=== PATIENT | male | born 1995 | race Caucasian/White ===

== ENCOUNTER 2019-01-11 10:21 | Outpatient (CLI) | payer OTHER | END 2019-01-11 10:22 | disposition critical access hospital (66) | LOC: EMS 10:21 | PROVIDERS: ATTEND Surgery | DX: R10.11 Right upper quadrant pain (principal); R11.2 Nausea with vomiting, unspecified | CPT/HCPCS: A0425; A0427 ==

== ENCOUNTER 2019-01-11 10:50 | Day surgery (SDC) | payer OTHER ==
[2019-01-11 11:49] LABS: BASOPHILS % (AUTO) 0.2 %; HGB - HEMOGLOBIN 14.1 g/dL (14.0-18.0); LYMPHOCYTES # (AUTO) 0.7 10^3/uL (1.5-3.5); MEAN CORPUSCULAR HEMOGLOBIN 29.3 pg (27.0-31.0); MEAN CORPUSCULAR HGB CONC 32.3 g/dL (32.0-36.0); MEAN CORPUSCULAR VOLUME 90.9 fL (80.0-94.0); MEAN PLATELET VOLUME 8.8 fL (7.4-11.4); MONOCYTES # (AUTO) 1.2 10^3/uL (0.0-1.0); MONOCYTES % (AUTO) 6.7 %; NEUTROPHILS # (AUTO) 16.1 10^3/uL (1.5-6.6); NEUTROPHILS % (AUTO) 88.4 %; PLT - PLATELET COUNT 313 10^3/uL (130-450); RED BLOOD COUNT 4.81 10^6/uL (4.70-6.10); WHITE BLOOD COUNT 18.2 x10^3/uL (4.8-10.8)
--- NOTE | 2019-01-11 12:00 | ED Physician Documentation ---
PD HPI ABD PAIN - Stated complaint Stated Complaint: ABD PAIN/ N/V - Chief complaint Chief Complaint: Abd Pain - History obtained from History obtained from: Patient - History of Present Illness Timing - onset: How many days ago (4) Timing - duration: Days (4) Timing - details: Gradual onset, Still present Quality: Cramping, Aching, Pain Location: RUQ, Epigastric Radiation: Chest (with deep breathing) Improved by: No: Vomiting Worsened by: Eating, Breathing, Palpation Associated symptoms: Fever (subjective the past day), Nausea, Vomiting, Loss of appetite. No: Hematemesis, Diarrhea, Constipation, Near syncope / syncope Similar symptoms before: Has not had sx before Recently seen: Clinic ([facility] today, and referred to ER.) Review of Systems Constitutional: reports: Fever, Chills, Myalgias Nose: denies: Rhinorrhea / runny nose, Congestion Throat: denies: Sore throat Cardiac: denies: Palpitations Respiratory: denies: Dyspnea, Cough GI: reports: Abdominal Pain, Nausea, Vomiting. denies: Constipation, Diarrhea : denies: Dysuria, Frequency, Discharge Skin: denies: Rash PD PAST MEDICAL HISTORY - Past Medical History Past Medical History: No Cardiovascular: None Respiratory: None GI: None - Past Surgical History Past Surgical History: No - Present Medications Home Medications: Ambulatory Orders Medication Instructions Recorded Confirmed No Known Home Medications 01/11/19 01/11/19 - Allergies Allergies/Adverse Reactions: Allergies Allergy/AdvReac Type Severity Reaction Status Date / Time No Known Drug Allergies Allergy Verified 01/11/19 10:56 - Social History Does the pt smoke?: No Smoking Status: Never smoker PD ED PE NORMAL - Vitals Vital signs reviewed: Yes - General General: Alert and oriented X 3, Well developed/nourished, Other (Appears in pain and is tender in the right upper quadrant.) - HEENT HEENT: Pharynx benign. No: Moist mucous membranes - Neck Neck: Supple, no meningeal sign, No adenopathy - Cardiac Cardiac: RRR, No murmur - Respiratory Respiratory: Clear bilaterally - Abdomen Abdomen: Soft, Non distended, No organomegaly, Other (Bowel sounds are diminished. He is markedly tender with percussion and guarding in the right upper quadrant to the mid abdomen. Lower abdomen itself is not tender. There is no CVA tenderness. There is some referred tenderness to the upper right from the periumbilical area.) - Male Male : Deferred - Rectal Rectal: Deferred - Back Back: No CVA TTP - Derm Derm: Normal color, Warm and dry - Neuro Neuro: Alert and oriented X 3, No motor deficit, Normal speech Eye Opening: Spontaneous Motor: Obeys Commands Verbal: Oriented GCS Score: 15 Results - Vitals Vitals: Vital Signs - 24 hr 01/11/19 01/11/19 01/11/19 18:00 18:05 18:10 Temperature 37.7 C H 37.7 C H 37.2 C Heart Rate 71 76 71 Respiratory 16 14 14 Rate Blood Pressure 95/53 L 104/53 L 109/56 L O2 Saturation 99 99 99 01/11/19 01/11/19 01/11/19 18:15 18:20 18:25 Temperature 37.1 C 37.1 C 37.1 C Heart Rate 71 73 77 Respiratory 14 14 14 Rate Blood Pressure 98/52 L 108/60 110/55 L O2 Saturation 99 99 99 01/11/19 01/11/19 01/11/19 18:31 18:35 18:45 Temperature 37.1 C 37.1 C 37 C Heart Rate 75 71 72 Respiratory 14 14 14 Rate Blood Pressure 110/60 110/62 113/56 L O2 Saturation 99 100 100 01/11/19 01/11/19 01/11/19 19:27 19:42 19:57 Temperature 37.0 C 37.6 C H 37.4 C Heart Rate 84 80 100 Respiratory 16 16 18 Rate Blood Pressure 108/65 113/52 L 118/69 O2 Saturation 99 98 98 01/11/19 01/11/19 01/11/19 20:12 20:42 21:12 Temperature 37.5 C 37.6 C H 37.6 C H Heart Rate 100 86 97 Respiratory 16 18 18 Rate Blood Pressure 109/66 112/59 L 96/77 O2 Saturation 97 98 99 01/11/19 01/11/19 01/12/19 22:12 23:12 00:09 Temperature 37.4 C 36.9 C 37.0 C Heart Rate 78 91 92 Respiratory 16 16 16 Rate Blood Pressure 109/43 L 99/49 L 110/46 L O2 Saturation 98 99 99 01/12/19 01/12/19 01/12/19 01:10 04:24 08:04 Temperature 36.9 C 37.1 C 36.8 C Heart Rate 96 67 80 Respiratory 16 16 16 Rate Blood Pressure 102/46 L 103/43 L 121/65 O2 Saturation 99 99 96 01/12/19 12:54 Temperature 37.1 C Heart Rate 93 Respiratory 16 Rate Blood Pressure 129/62 O2 Saturation 97 Oxygen O2 Source Room air - Labs Labs: Microbiology 01/11/19 16:30 Anaerobic Culture - Preliminary Gallbladder 01/11/19 16:30 Body Fluid Culture - Preliminary Gallbladder Fluid Laboratory Tests 01/11/19 01/11/19 01/11/19 11:30 11:30 12:30 WBC 18.2 H RBC 4.81 Hgb 14.1 Hct 43.7 MCV 90.9 MCH 29.3 MCHC 32.3 RDW 12.0 Plt Count 313 MPV 8.8 Neut # (Auto) 16.1 H Lymph # (Auto) 0.7 L [facility] # (Auto) 1.2 H Eos # (Auto) 0.0 Baso # (Auto) 0.0 Absolute Nucleated RBC 0.00 Nucleated RBC % 0.0 Sodium 140 Potassium 3.9 Chloride 105 Carbon Dioxide 23 Anion Gap 12.0 BUN 15 Creatinine 0.9 Estimated GFR (MDRD) 104 Glucose 138 H Calcium 9.0 Total Bilirubin 1.0 AST 20 ALT 20 Alkaline Phosphatase 54 Total Protein 7.5 Albumin 4.4 Globulin 3.1 Albumin/Globulin Ratio 1.4 Lipase 34 Urine Color YELLOW Urine Clarity CLEAR Urine pH 6.5 Ur Specific Farber 1.025 Urine Protein 100 H Urine Glucose (UA) 250 H Urine Ketones 15 H Urine Occult Blood NEGATIVE Urine Nitrite NEGATIVE Urine Bilirubin NEGATIVE Urine Urobilinogen 2 H Ur Leukocyte Esterase NEGATIVE Urine RBC 0-5 Urine WBC 4-5 Ur Epithelial Cells None Seen Ur Squamous Epith Cells NONE SEEN Urine Bacteria None Seen Urine Mucus Few Strands Ur Microscopic Review INDICATED Urine Culture Comments NOT INDICATED 01/12/19 01/12/19 06:50 06:50 WBC 11.7 H RBC 4.41 L Hgb 13.4 L Hct 40.5 L MCV 91.8 MCH 30.4 MCHC 33.1 RDW 12.0 Plt Count 309 MPV 9.1 Neut # (Auto) 10.0 H Lymph # (Auto) 0.8 L [facility] # (Auto) 0.8 Eos # (Auto) 0.1 Baso # (Auto) 0.0 Absolute Nucleated RBC 0.00 Nucleated RBC % 0.0 Sodium 138 Potassium 3.9 Chloride 105 Carbon Dioxide 22 Anion Gap 11.0 BUN 16 Creatinine 1.0 Estimated GFR (MDRD) 92 Glucose 132 H Calcium 8.6 Total Bilirubin 1.6 H AST 36 ALT 40 Alkaline Phosphatase 47 Total Protein 6.7 Albumin 3.7 Globulin 3.0 Albumin/Globulin Ratio 1.2 Lipase Urine Color Urine Clarity Urine pH Ur Specific Farber Urine Protein Urine Glucose (UA) Urine Ketones Urine Occult Blood Urine Nitrite Urine Bilirubin Urine Urobilinogen Ur Leukocyte Esterase Urine RBC Urine WBC Ur Epithelial Cells Ur Squamous Epith Cells Urine Bacteria Urine Mucus Ur Microscopic Review Urine Culture Comments - Rads (name of study) abd CT Radiology: Prelim report reviewed, Discussed with rads (Acute emphysematous cholecystitis.), See rad report PD MEDICAL DECISION MAKING - ED course Complexity details: reviewed results (Appears to be emphysematous cholecystitis. No obvious ductal process. His liver enzymes are normal speaking against a ductal process. On-call surgery will be called. He is given IV antibiotics. Surgery is here and will evaluate the patient for surgical treatment.), re-evaluated patient, considered differential (Consider gallbladder versus pancreas. Unlikely to be appendicitis given the location. Also consider transverse colitis. Will get labs and CT scan.), d/w patient, d/w big machine consultant (Will consult Dr. Vogel is on-call for surgery) Departure - Departure Disposition: ED Transfer to [facility] Clinical Impression: Acute cholecystitis Condition: Stable Record reviewed to determine appropriate education?: Yes Discharge Date/Time: 01/11/19 15:50
[2019-01-11 12:05] LABS: ALBUMIN 4.4 g/dL (3.2-5.5); ALBUMIN/GLOBULIN RATIO 1.4 (1.0-2.2); CREATININE 0.9 mg/dL (0.6-1.2); TOTAL PROTEIN 7.5 g/dL (6.7-8.2)
[2019-01-11] MEDS ORDERED: ONDANSETRON 4 MG/2 ML VIAL IVP STA (12:24)
[2019-01-11] MEDS ORDERED: HYDROmorphone 1 MG/ML CARPUJECT IVP STA ×2 (12:24→15:01)
[2019-01-11] MEDS ORDERED: SODIUM CHLORIDE 0.9% 1,000 ML IV ONE (12:24)
[2019-01-11] MEDS ORDERED: IOVERSOL 320 100 ML VIAL IVP ONE ×2 (12:52→13:01)
[2019-01-11 12:56] LABS: GLUCOSE, URINE (UA) 250 mg/dL (NEGATIVE); KETONES,URINE (UA) 15 mg/dL (NEGATIVE); LEUKOCYTE ESTERASE, URINE NEGATIVE (NEGATIVE); NITRITE,URINE NEGATIVE (NEGATIVE); OCCULT BLOOD,URINE NEGATIVE (NEGATIVE); PH,URINE 6.5 PH (5.0-7.5); PROTEIN,URINE 100 mg/dL (NEGATIVE); UROBILINOGEN,URINE 2 E.U./dL (NORMAL)
[2019-01-11 13:09] LABS: BILIRUBIN,URINE NEGATIVE (NEGATIVE); CLARITY,URINE CLEAR (CLEAR); ICTOTEST,URINE NEGATIVE
[2019-01-11] MEDS ORDERED: AMPICILLIN/SULBACTAM 3 GM in SODIUM CHLORIDE 0.9% MINIBAG 100 ML IV STA (13:16)
--- NOTE | 2019-01-11 13:24 | CT Report ---
Reason: right abd pain, upper mostly, for 4 days Procedure Date: 01/11/2019 Accession Number: [id number] / [id number] Procedure: CT - Abdomen/Pelvis W CPT Code: FULL RESULT: EXAM: CT ABDOMEN AND PELVIS EXAM DATE: 01/11/2019 01:00 PM. CLINICAL HISTORY: Right abdominal pain, upper mostly, for 4 days. COMPARISONS: None. TECHNIQUE: Routine helical CT imaging was performed through the abdomen and pelvis. IV contrast: Optiray 320 90 mL. Enteric contrast: No. Reconstructions: Coronal and sagittal. In accordance with CT protocol optimization, one or more of the following dose reduction techniques were utilized for this exam: automated exposure control, adjustment of mA and/or KV based on patient size, or use of iterative reconstructive technique. FINDINGS: Lung Bases: Unremarkable. Liver: Periportal edema. Gallbladder/Bile Ducts: Gallbladder is enlarged with pericholecystic subtle fat stranding and wall thickening with discontinuous enhancement of the internal mucosal lining and nondependent gas within the gallbladder. Distribution and appearance of the gas does not favor a vacuum phenomenon within radiolucent calculi but rather emphysematous cholecystitis. Spleen: Normal. Pancreas: Normal. Adrenal Glands: Normal. Kidneys: Normal. No masses or hydronephrosis. Peritoneal Cavity/Bowel: There is free fluid within the pelvis. There is no bowel obstruction. There is no free air. Fat stranding involving the hepatic flexure of the colon, the retrocecal appendix which courses cranially all the way up to the gallbladder fossa and the second and third portions of the duodenum are all felt to be bystander effect. There is regional lymphadenopathy, expected finding in this setting. Pelvic Organs: The bladder and visualized pelvic organs are within normal limits. Vasculature: No aneurysms or other significant abnormality. Bones: No significant abnormality. Other: None. IMPRESSION: Emphysematous cholecystitis. CRITICAL RESULT: The findings were discussed with Dr. Boyer on 01/11/2019 at 1:15 PM. RADIA
[2019-01-11 13:30] LABS: BACTERIA,URINE None Seen /HPF (None Seen); EPITHELIAL CELLS,UR None Seen /HPF (<= Few); MUCUS,URINE Few Strands; RBC,URINE 0-5 /HPF (0-5)
[2019-01-11 14:05] LABS: SQUAMOUS EPITHELIAL CELL,UR NONE SEEN (<= Few)
--- NOTE | 2019-01-11 14:28 | CONSULTATION NOTE ---
Referring Provider Name of Referring Provider:: Dr. Murphy Boyer Consult Date: 01/11/19 Chief Complaint - Chief Complaint Chief Complaint: Severe right upper quadrant pain History of Present Illness - Admitted From Admitted From:: Not admittedoutpatient - History Obtained From Records Reviewed: Yes History obtained from: Patient, the chart, Dr. 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 The patient states that on Monday night he had the abrupt onset of right upper quadrant pain that was described as severe. Prior to that abrupt onset he had eaten a burger. The pain was accompanied by nausea and vomiting. He had never had this pain previously and the pain is described as a 10 out of 10 unless he is taking pain medications at which time it is described as a 6 out of 10. History - Past Medical History Cardiovascular: reports: None Respiratory: reports: None MRSA Hx?: No Meds/Allgy - Home Medications Home Medications: Ambulatory Orders Medication Instructions Recorded Confirmed No Known Home Medications 01/11/19 01/11/19 - Allergies Allergies/Adverse Reactions: Allergies Allergy/AdvReac Type Severity Reaction Status Date / Time No Known Drug Allergies Allergy Verified 01/11/19 10:56 Review of Systems - Constitutional Constitutional: denies: Fatigue - Eyes Eyes: denies: Pain - Ears, Nose & Throat Ears, Nose & Throat: denies: Ear pain - Cardiovascular Cariovascular: denies: Irregular heart rate - Respiratory Respiratory: denies: Cough - Gastrointestinal Gastrointestinal: reports: Abdominal pain - Genitourinary Genitourinary: denies: Dysuria - Musculoskeletal Musculoskeletal: denies: Muscle pain, Back pain, Muscle aches - Neurological Neurological: denies: General weakness, Focal weakness Exam - Vital Signs Reviewed Vital Signs: Yes Vital Signs: Vital Signs x48h Temp Pulse Resp BP Pulse Ox 01/11/19 12:35 56 L 19 150/73 H 98 01/11/19 10:53 36.9 C 57 L 16 144/78 H 96 - Physical Exam General Appearance: positive: Mild distress (Splints whenever he breathes deeply or laughs.), Other (Slightly pasty complexion, sweaty.) Eyes Bilateral: positive: No lid inflammation, Conjunctivae nml, No scleral icterus ENT: positive: Dry mucous membranes Neck: positive: Trachea midline Respiratory: positive: Chest non-tender, No respiratory distress, Breath sounds nml Cardiovascular: positive: Regular rate & rhythm Abdomen: positive: Tenderness (Point tender in the right upper quadrant. Peritoneal in nature.) Skin: positive: Color nml Extremities: positive: Non-tender Neurologic/Psychiatric: positive: Oriented x3, Motor nml, Sensation nml, Mood/affect nml Conclusion/Plan - Diagnosis Diagnosis: Acute emphysematous cholecystitis - Plan Plan: Laparoscopic cholecystectomy, possible open cholecystectomy, possible intraoperative cholangiogram, possible common bile duct exploration. The indications, procedure, alternatives including no surgery, possible risks including infection (deep or superficial), bleeding requiring transfusion (with all of its risks), common bile duct injury and were fully explained to the patient and all questions answered. I explained what the gallbladder is and how it works. I also explained the pathophysiology. I explained that following the surgery I did not want him lifting anything over 15 pounds for 6 weeks to allow for optimal healing and to decrease the likelihood that a hernia would occur. All questions were fully answered. Verbal and written consent was obtained. The patient, in preparation for surgery will be nothing by mouth, receive a soap and water shower, and receive 2 g of Ancef with induction. I asked him to contact me with any surgical questions and his concerns and he stated that he would. I asked him to let me know if there is any way we can make his say at [facility] more comfortable and he stated that he would let me know. 45 minutes of [id number] time spent with the patient, the majority of which was spent in discussion, coordination of care, and completion of the requisite paperwork Springr disclaimer: This document was created in part using voice recognition technology. Because of the inherent limitations of the system ([employer]'s Springr Dictate user manual states that the licensee understands that speech recognition is a statistical process and that recognition errors are inherent in the process), occasional same sounding word substitutions and grammatical errors do occur and persist despite proofreading. Please read this document for context. - Lab Results Lab results reviewed: Yes Fish Bones: 01/11/19 11:30 01/11/19 11:30 - Diagnostic Imaging Results Diagnostic Imaging Results: positive: Final report reviewed Diagnostic Imaging Results Comments: Consistent with acute emphysematous cholecystitis.
--- NOTE | 2019-01-11 14:37 | ANESTHESIA ---
Pre-Anesthesia VS, & Labs - Diagnosis Diagnosis Acute emphysematous cholecystitis - Procedure Laparoscopic cholecystectomy Vital Signs: Temp Pulse Resp BP Pulse Ox 36.9 C 56 L 19 150/73 H 98 01/11/19 10:53 01/11/19 12:35 01/11/19 12:35 01/11/19 12:35 01/11/19 12:35 Height 5 ft 9 in Weight (kg) 83.915 kg Body Mass Index 27.3 - NPO Last Food Intake: 06/13 [employer] @6Scan - Lab Results Current Lab Results: Laboratory Tests 01/11/19 11:30: Sodium 140, Potassium 3.9, Chloride 105, Carbon Dioxide 23, Anion Gap 12.0, BUN 15, Creatinine 0.9, Estimated GFR (MDRD) 104, Glucose 138 H, Calcium 9.0, Total Bilirubin 1.0, AST 20, ALT 20, Alkaline Phosphatase 54, Total Protein 7.5, Albumin 4.4, Globulin 3.1, Albumin/Globulin Ratio 1.4, Lipase 34 01/11/19 11:30: WBC 18.2 H, RBC 4.81, Hgb 14.1, Hct 43.7, MCV 90.9, MCH 29.3, MCHC 32.3, RDW 12.0, Plt Count 313, MPV 8.8, Neut # (Auto) 16.1 H, Lymph # (Auto) 0.7 L, Cache # (Auto) 1.2 H, Eos # (Auto) 0.0, Baso # (Auto) 0.0, Absolute Nucleated RBC 0.00, Nucleated RBC % 0.0 Fish Bones: 01/11/19 11:30 01/11/19 11:30 Home Medications and Allergies Home Medications: Ambulatory Orders No Known Home Medications 01/11/19 No Known Home Medications 01/11/19 Allergies/Adverse Reactions: Allergies Allergy/AdvReac Type Severity Reaction Status Date / Time No Known Drug Allergies Allergy Verified 01/11/19 10:56 Anes History & Medical History - Anesthetic History Anesthesia Complications: reports: No previous complications Family history of Anesthesia Complications: Denies Family history of Malignant Hyperthermia: Denies - Medical History Cardiovascular: reports: None Pulmonary: reports: None Smoking Status: Never smoker Exam General: Alert, Oriented x3, Cooperative Dental: WNL Mouth Opening: Greater than 4 Fingerbreadths Neck Mobility: Normal Mallampati classification: I Thyromental Distance: 4-6 cm Respiratory: Lungs clear, Normal breath sounds, No respiratory distress Cardiovascular: Regular rate Neurological: Normal speech Mental/Cognitive Status: Alert/Oriented X3, Normal for patient Cognitive Status: Within normal limits Plan Anesthesia Type: General Consent for Procedure(s) Verified and Reviewed: Yes Code Status: Attempt Resuscitation ASA classification: 1-Healthy patient Is this case an emergency?: Yes
--- NOTE | 2019-01-11 15:25 | OPERATIVE REPORT ---
Operative Report - General Procedure Date: 01/11/19 Planned Procedure: Incarcerated left inguinal herniorrhaphy Pre-Op Diagnosis: Incarcerated left inguinal hernia Procedure Performed: Incarcerated left indirect inguinal herniorrhaphy Post Op Diagnosis: Incarcerated left indirect inguinal hernia - Procedure Note Primary Surgeon: Murphy Vogel MD Anesthesia Provider: Sergio Padilla CRNA Anesthesia Technique: General LMA, Local (30 mL of half percent Marcaine) IV Fluids (mL): 600 Estimated Blood Loss (mL): 10 Drain/Tube Type: Other (None.) Complications: None. - Other Other Information/Narrative: OPERATIVE DESCRIPTION/REPORT: After verbal and written informed consent was obtained detailing the risks of infection, bleeding requiring transfusion with its risks, nerve injury, and d eath, and after I met with the patient confirming the surgery and the site of the surgery and after initialing the site of the surgery with a surgical marker, the patient was brought to the operative suite and placed supine on the operating table. Great care was taken to avoid pressure points to prevent pressure necrosis or nerve injury. Monitoring devices were applied along with TEDs and pneumatic compressive stockings (to prevent DVT). The patient received preoperative antibiotics for surgical prophylaxis. Sergio Padilla CRNA sedated and anesthetized the patient for the entire procedure. The patient was prepped and draped in the usual sterile manner. With the patient draped my initials were clearly visible. A "time in" then confirmed that the patient was identified with 3 identifiers (name, date and medical record number), the history and physical was in the chart, the signed consent confirming the procedure was in the chart, the patient was in the correct position, the aforementioned prophylactic measures were in place or given, we had the correct personnel and equipment to complete the procedure and that anesthesia, surgery and nursing were given an opportunity to express any concerns. With the agreement of everyone in the room, we proceeded with the operation. A standard inguinal incision was made and dissection was carried down to the widely dilated external oblique aponeurosis using a combination of Metzenbaum scissors and Bovie electrocautery. The external oblique aponeurosis was cleared of overlying adherent tissue, and the external ring was delineated. The external oblique was the incised with a scalpel and this incision was carried out to the external ring using Metzenbaum scissors. Having exposed the inguinal canal, the cord structures were from the canal using blunt dissection, and a Nicole drain was placed around the cord structures at the level of the pubic tubercle. During this maneuver the hernia spontaneously reduced obviously making the entire procedure easier. This Nicole drain was then used to retract the cord structures as needed. Adherent cremasteric muscle was dissected free from the cord using Bovie electrocautery. The cord was then explored using a combination of sharp and blunt dissection, and the sac was found anteromedially to the cord structures. There was significant edema around the cord structures. The sac was dissected free from the cord structures using a combination of blunt dissection and Bovie electrocautery. Once preperitoneal fat was encountered, the dissection stopped. Examination of the sac revealed that this was a sliding indirect inguinal hernia and I determined that opening the sac would have simply made the entire procedure more problematic. The sac was placed back into the abdominal cavity and an extra-large Bard Perfix plug (Ref# [id number], Lot# [id number], use date 2023-11-07) inserted into the internal ring. The plug was secured to the internal ring by interrupted 2-0 PDS sutures. The Bard Perfix enlay patch was then placed on the floor of the inguinal canal and secured in place using interrupted 0 PDS sutures to the conjoined tendon superiorly, pubic tubercle medially, and shelving edge inferiorly. By reinforcing the floor with the enlay patch, a new internal ring was thus formed. The Nicole drain was removed. The wound was then irrigated using sterile saline, and hemostasis was obtained using Bovie electrocautery. The incision in the external oblique was approximated using a 3-0 Vicryl in a running fashion, thus reforming the external ring. The fascia and skin was then injected with the 1/2% marcaine for termite exterminator pain control. The skin incision was approximated with 4-0 Monocryl in a subcuticular fashion. The skin was prepped with benzoin and steristrips were applied. At this point a time out was performed that confirmed that all the counts were correct, the procedure that was performed, the blood loss, the IV fluids administered, and the patients condition. A dressing was then applied. Gentle downward traction ensured that the testes were well seated in the scrotum. Having tolerated the procedure well, the patient was taken to short stay in good and stable condition. Lori disclaimer: This document was created in part using voice recognition technology. Because of the inherent limitations of the system ([employer]'s Dragon Dictate user manual states that the licensee understands that speech recognition is a statistical process and that recognition errors are inherent in the process), occasional same sounding word substitutions and grammatical errors do occur and persist despite proofreading. Please read this document for context.
[2019-01-11] MEDS ORDERED: LACTATED RINGERS 1,000 ML IV ONE ×2 (15:49→18:17)
[2019-01-11] MEDS: BUPIVACAINE 0.5% PF 10 ML VIAL ONE ×2 (16:52→17:45)
[2019-01-11] MEDS ORDERED: ONDANSETRON 4 MG/2 ML VIAL IVP PRN (18:03)
[2019-01-11] MEDS ORDERED: HYDROmorphone 0.5 MG/0.5 ML SYRINGE IVP PRN (18:03)
[2019-01-11] MEDS ORDERED: HYDROcod/ACETAM 5/325 MG TABLET PO PRN (18:03)
[2019-01-11] MEDS ORDERED: ACETAMINOPHEN 1,000 MG/100 ML 100 ML IV ONE (18:19)
--- NOTE | 2019-01-11 18:20 | OPERATIVE REPORT ---
Operative Report - General Planned Procedure: Laparoscopic cholecystectomy Pre-Op Diagnosis: Emphysematous cholecystitis Procedure Performed: Laparoscopic cholecystectomy Post Op Diagnosis: Gangrenous cholecystitis - Procedure Note Primary Surgeon: Murphy Vogel MD Anesthesia Provider: Manny Martin CRNA Anesthesia Technique: General ET tube, Local (30 mL of half percent Marcaine) IV Fluids (mL): 800 Estimated Blood Loss (mL): 200 Drain/Tube Type: Other (None.) Complications: None. - Other Other Information/Narrative: OPERATIVE DESCRIPTION/REPORT: After verbal and written informed consent was obtained detailing the risks of infection, bleeding requiring transfusion with its risks, nerve injury, and , as well as the possibility of a colostomy, and after I met with the patient confirming the surgery, the patient was brought to the operative suite and placed supine on the operating table. Great care was taken to avoid pressure points to prevent pressure necrosis or nerve injury. Monitoring de vices were applied along with TEDs and pneumatic compressive stockings (to prevent DVT). The patient received preoperative antibiotics for surgical prophylaxis. Manny Martin CRNA sedated and anesthetized the patient for the entire procedure. The patient was prepped and draped in the usual sterile manner. A "time in" then confirmed that the patient was identified with 3 identifiers (name, date and medical record number), the history and physical was in the chart, the signed consent confirming the procedure was in the chart, the patient was in the correct position, the aforementioned prophylactic measures were in place or given, we had the correct personnel and equipment to complete the procedure and that anesthesia, surgery and nursing were given an opportunity to express any concerns. With the agreement of everyone in the room, we proceeded with the operation. The initial incision was at the umbilicus and dissection to the linea alba was completed using blunt dissection. The linea alba was grasped with a Ashok and incised. In a similar manner the peritoneum was grasped and incised using Metzenbaum scissors. In this location, a 12 mm blunt tipped, balloon tipped po rt was placed and the balloon was inflated to keep the port in position. The abdominal cavity was insufflated with carbon dioxide to steady-state pressure of 15 mmHg. Three additional 5 mm ports were placed in standard location for laparoscopic cholecystectomy (subxiphoid and 2 right subcostal) under direct vision of the 30 degree laparoscope and without incident. The patient was then placed in reverse Trendelenburg position and was rotated slightly to their left. Although it was suspected from the emphysematous nature of the gallbladder, it was obvious upon entering the abdomen that the gallbladder itself was gangrenous. The wall was markedly thick and could not be grasped with a standard ratcheting grasper. As such, I placed a laparoscopic needle into the gallbladder and removed approximately 180 mL of bile which was then sent off for aerobic and anaerobic culture. With the gallbladder decompressed grasping it was still difficult but it could be grasped. The gallbladder fundus was grasped with an atraumatic grasper. Multiple adhesions had to be taken down by blunt and sharp dissection along with electrocautery. Eventually, I identified the infundibulum, and this was then grasped and retracted inferior and laterally. Dissection was then begun in the angle of Calot. The cystic duct and (slightly medially and posteriorly) cystic artery were clearly identified. The critical view was obtained. Two clips proximally and one clip distally were used to control both the cystic duct and cystic artery. The clips were carefully placed to avoid occluding the juncture with the common bile duct. Both the cystic duct and then the cystic artery were then transected with laparoscopic dominique. The gallbladder was then removed from its fossa in a retrograde fashion using electrocautery. With the 30 degree 5 mm scope in the subxiphoid position, the gallbladder was placed in an EndoCatch bag to be extracted through the 12 mm port site. I irrigated the right upper quadrant with a liter of warm sterile saline, and the area was aspirated dry. I inspected the gallbladder fossa and there was no bleeding or bile leak. Clips on the cystic duct and cystic artery appeared to be secure. I briefly visually explored the abdomen. There was no other evidence of overt pathology. I injected the port sites at the peritoneal, fascial, and skin levels under direct vision with 0.5% Marcaine. All ports and the EndoCatch containing the gallbladder were removed. Following gallbladder removal, the remaining carbon dioxide was expelled from the abdomen. The fascia at the umbilicus was reapproximated using 2 [id number] 0 Vicryl sutures. The skin at each port site was approximated using a subcuticular 4-0 Monocryl. The surgical count of instruments, needles and sponges was reported as correct twice. Dermabond was applied. The patient was then awakened from anesthesia, extubated, and having tolerated the procedure well, was transported to the recovery room. No complications were encountered. A "time out" confirmed the operation performed, the fluids given, the estimated blood loss and anesthesia, surgery and nursing were given an opportunity to express any concerns. Dragon disclaimer: This document was created in part using voice recognition technology. Because of the inherent limitations of the system ([employer]'s Dragon Dictate user manual states that the licensee understands that speech recognition is a statistical process and that recognition errors are inherent in the process), occasional same sounding word substitutions and grammatical errors do occur and persist despite proofreading. Please read this document for context.
[2019-01-11] MEDS: PIPERACILLIN/TAZOBACTAM 3.375 GM in SODIUM CHLORIDE 0.9% MINIBAG 100 ML IV SCH (19:16)
[2019-01-11] MEDS ORDERED: SODIUM CHLORIDE 0.9% 500 ML ONE (19:18)
[2019-01-12] MEDS: PIPERACILLIN/TAZOBACTAM 3.375 GM in SODIUM CHLORIDE 0.9% MINIBAG 100 ML IV SCH ×2 (00:42→06:31)
[2019-01-12] MEDS ORDERED: SODIUM CHLORIDE FLUSH 0.9% 10 ML SYRINGE ONE ×2 (00:46→02:17)
[2019-01-12 07:22] LABS: BASOPHILS % (AUTO) 0.3 %; EOSINOPHILS # (AUTO) 0.1 10^3/uL (0.0-0.7); EOSINOPHILS % (AUTO) 0.7 %; HGB - HEMOGLOBIN 13.4 g/dL (14.0-18.0); LYMPHOCYTES # (AUTO) 0.8 10^3/uL (1.5-3.5); LYMPHOCYTES % (AUTO) 6.5 %; MEAN CORPUSCULAR HEMOGLOBIN 30.4 pg (27.0-31.0); MEAN CORPUSCULAR HGB CONC 33.1 g/dL (32.0-36.0); MEAN CORPUSCULAR VOLUME 91.8 fL (80.0-94.0); MEAN PLATELET VOLUME 9.1 fL (7.4-11.4); MONOCYTES # (AUTO) 0.8 10^3/uL (0.0-1.0); MONOCYTES % (AUTO) 6.6 %; NEUTROPHILS % (AUTO) 85.3 %; PLT - PLATELET COUNT 309 10^3/uL (130-450); RED BLOOD COUNT 4.41 10^6/uL (4.70-6.10); WHITE BLOOD COUNT 11.7 x10^3/uL (4.8-10.8)
[2019-01-12 07:30] LABS: ALBUMIN 3.7 g/dL (3.2-5.5); ALBUMIN/GLOBULIN RATIO 1.2 (1.0-2.2); BILIRUBIN,TOTAL 1.6 mg/dL (0.2-1.0); CALCIUM 8.6 mg/dL (8.5-10.3); TOTAL PROTEIN 6.7 g/dL (6.7-8.2)
[2019-01-12 12:56] VITALS: BP 129/62
== END 2019-01-12 13:30 | disposition home or self-care (01) ==
LOC: ED 10:50 → SDS 14:20 → ED 15:50 → MS2 18:59 → SDS 01-12 13:30
PROVIDERS: ATTEND Surgery
PROC: 0FT44ZZ Resection of Gallbladder, Percutaneous Endoscopic Approach (ICD-10-PCS; principal; 2019-01-11 15:00)
DX: K80.00 Calculus of gallbladder with acute cholecystitis without obstruction (principal); K82.A1 Gangrene of gallbladder in cholecystitis
CPT/HCPCS: 36415; 47562; 74177; 80053; 81001; 83690; 85025; 87070; 87205; 96374; 99283; 99285; A9270; J0131; J1170; J7120; Q9967; 81003; 87086

== ENCOUNTER 2019-09-14 22:09 | Emergency (ER) | payer OTHER ==
--- NOTE | 2019-09-14 22:12 | ED Physician Documentation ---
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 No: Fever, Diarrhea, Constipation Similar symptoms before: Has not had sx before Recently seen: Not recently seen Review of Systems Constitutional: denies: Fever, Chills, Sweats Cardiac: reports: Reviewed and negative Respiratory: reports: Reviewed and negative GI: reports: Abdominal Pain, Nausea, Vomiting. denies: Constipation, Diarrhea : denies: Dysuria, Frequency, Hematuria Musculoskeletal: denies: Back pain PD PAST MEDICAL HISTORY - Past Medical History Cardiovascular: None Respiratory: None GI: None - Past Surgical History Past Surgical History: No - Present Medications Home Medications: Ambulatory Orders Medication Instructions Recorded Confirmed Hydrocodone/Acetaminophen 1 - 2 each PO Q6HR PRN #14 tablet 09/15/19 [Hydrocodone-Acetamin 5-325 mg] - Allergies Allergies/Adverse Reactions: Allergies Allergy/AdvReac Type Severity Reaction Status Date / Time No Known Drug Allergies Allergy Verified 01/11/19 10:56 - Social History Does the pt smoke?: No Smoking Status: Never smoker PD ED PE NORMAL - Vitals Vital signs reviewed: Yes - General General: Alert and oriented X 3, Well developed/nourished, Other (obvious painful distress) - HEENT HEENT: Moist mucous membranes - Neck Neck: Supple, no meningeal sign - Cardiac Cardiac: No murmur - Respiratory Respiratory: No respiratory distress, Clear bilaterally - Back Back: No CVA TTP - Derm Derm: Normal color, Warm and dry, No rash PD ED PE EXPANDED - Cardiac Cardiac: Tachy, Regular Rhythm - Abdomen Abdomen: Tender to palpation, RUQ, Epigastric. No: Rebound, Guarding Results - Vitals Vitals: Vital Signs - 24 hr 09/14/19 09/14/19 09/14/19 22:16 23:23 23:52 Temperature 36.4 C L Heart Rate 108 H 98 99 Respiratory 20 16 16 Rate Blood Pressure 140/84 H 134/84 H 125/66 O2 Saturation 98 98 96 Oxygen O2 Source Room air - Labs Labs: Laboratory Tests 09/14/19 09/14/19 22:25 22:25 WBC 7.9 RBC 5.33 Hgb 16.5 Hct 48.4 MCV 90.8 MCH 31.0 MCHC 34.1 RDW 11.6 L Plt Count 372 MPV 8.6 Neut # (Auto) 5.3 Lymph # (Auto) 2.0 Tillman # (Auto) 0.5 Eos # (Auto) 0.2 Baso # (Auto) 0.0 Absolute Nucleated RBC 0.00 Nucleated RBC % 0.0 Sodium 136 Potassium 3.5 Chloride 102 Carbon Dioxide 23 Anion Gap 11.0 BUN 16 Creatinine 1.1 Estimated GFR (MDRD) 82 L Glucose 90 Calcium 9.5 Total Bilirubin 1.2 H AST 81 H ALT 52 Alkaline Phosphatase 73 Total Protein 8.9 H Albumin 5.5 Globulin 3.4 Albumin/Globulin Ratio 1.6 Lipase 47 - Rads (name of study) CT A/P Radiology: Prelim report reviewed, See rad report PD MEDICAL DECISION MAKING - ED course Complexity details: reviewed results, re-evaluated patient, considered differential, d/w patient ED course: testing (blood tests, UA, CT A/P with IV contrast) does not yield diagnostic result or emergently concerning findings. On reevaluation, after IV fluids and 1 mg IV dilaudid, patient is resting comfortably, awake and alert and reports good pain relief. Results of tests d/w patient. Encouraged to f/u with PMD and return if worse Departure - Departure Disposition: 01 Home, Self Care Clinical Impression: Abdominal pain Condition: Good Instructions: ED Abdominal Pain Unkn Cause Male Follow-Up: [facility] [Provider Group] Prescriptions: Hydrocodone/Acetaminophen [Hydrocodone-Acetamin 5-325 mg] 1 - 2 each PO Q6HR PRN #14 tablet PRN Reason: Pain Discharge Date/Time: 09/15/19 00:29
[2019-09-14] MEDS ORDERED: HYDROmorphone 1 MG/ML SYRINGE IVP STA (22:34)
[2019-09-14] MEDS ORDERED: SODIUM CHLORIDE 0.9% 1,000 ML IV STA (22:34)
[2019-09-14 22:41] LABS: BASOPHILS % (AUTO) 0.4 %; EOSINOPHILS # (AUTO) 0.2 10^3/uL (0.0-0.7); HGB - HEMOGLOBIN 16.5 g/dL (14.0-18.0); LYMPHOCYTES % (AUTO) 24.7 %; MEAN CORPUSCULAR HGB CONC 34.1 g/dL (32.0-36.0); MEAN CORPUSCULAR VOLUME 90.8 fL (80.0-94.0); MEAN PLATELET VOLUME 8.6 fL (7.4-11.4); MONOCYTES # (AUTO) 0.5 10^3/uL (0.0-1.0); MONOCYTES % (AUTO) 5.9 %; NEUTROPHILS # (AUTO) 5.3 10^3/uL (1.5-6.6); NEUTROPHILS % (AUTO) 66.7 %; PLT - PLATELET COUNT 372 10^3/uL (130-450); RED BLOOD COUNT 5.33 10^6/uL (4.70-6.10); RED CELL DISTRIBUTION WIDTH 11.6 % (12.0-15.0); WHITE BLOOD COUNT 7.9 x10^3/uL (4.8-10.8)
[2019-09-14 22:49] LABS: ALBUMIN 5.5 g/dL (3.2-5.5); ALBUMIN/GLOBULIN RATIO 1.6 (1.0-2.2); BILIRUBIN,TOTAL 1.2 mg/dL (0.2-1.0); CALCIUM 9.5 mg/dL (8.5-10.3); CREATININE 1.1 mg/dL (0.6-1.2); TOTAL PROTEIN 8.9 g/dL (6.7-8.2)
[2019-09-14] MEDS ORDERED: IOVERSOL 320 100 ML VIAL IVP ONE ×2 (22:49→23:29)
--- NOTE | 2019-09-14 23:40 | CT Report ---
Reason: abd. pain Procedure Date: 09/14/2019 Accession Number: [id number] / [id number] Procedure: CT - Abdomen/Pelvis W CPT Code: Final Report FULL RESULT: EXAM: CT ABDOMEN AND PELVIS EXAM DATE: 09/14/2019 11:27 PM. CLINICAL HISTORY: New onset of mid abdominal pain with nausea and vomiting. COMPARISONS: ABDOMEN/PELVIS W/ 01/11/2019 12:57 PM. TECHNIQUE: Routine helical CT imaging was performed through the abdomen and pelvis. IV contrast: 100 mL OPTIRAY 320. Enteric contrast: No. Reconstructions: Coronal and sagittal. In accordance with CT protocol optimization, one or more of the following dose reduction techniques were utilized for this exam: automated exposure control, adjustment of mA and/or KV based on patient size, or use of iterative reconstructive technique. FINDINGS: Atelectasis is seen in the left lung base. The visible heart is normal in size. No focal intrahepatic mass is seen. The gallbladder has been removed since the prior exam. The common bile duct is mildly dilated at 8 mm, likely related to postcholecystectomy changes. The spleen, pancreas, and adrenal glands are within normal limits. The kidneys enhance symmetrically. There is no renal mass or hydronephrosis. The intestines are normal in caliber and position. Diverticula are seen throughout the colon without evidence of diverticulitis. The appendix is normal. There is no evidence of bowel obstruction or inflammation. No free intraperitoneal air or ascites is seen. Subcentimeter mesenteric and periaortic lymph nodes are similar to the prior exam. The abdominal aorta is normal in course and caliber. The bladder is normal. The prostate gland is normal. There is no free pelvic fluid. No acute osseous abnormality is seen. There are no suspicious lytic or blastic lesions. Is maintained. IMPRESSION: 1. No acute intra-abdominal abnormalities to explain the patient's abdominal pain 2. Diverticulosis. RADIA
[2019-09-14 23:53] VITALS: BP 125/66
[2019-09-15] MEDS ORDERED: PANTOPRAZOLE 40 MG TABLET PO STA (00:06)
[2019-09-15] MEDS ORDERED: HYDROcod/ACET 5/325 Prepack 4 PO STA (00:07)
== END 2019-09-15 00:29 | disposition home or self-care (01) ==
LOC: ED 22:09
DX: R10.11 Right upper quadrant pain (principal); R10.13 Epigastric pain
CPT/HCPCS: 36415; 74177; 80053; 83690; 85025; 96361; 96374; 99284; A9270; J1170; Q9967

== ENCOUNTER 2020-05-09 10:21 | Emergency (ER) | payer OTHER ==
--- NOTE | 2020-05-09 11:10 | ED Physician Documentation ---
History of Present Illness - Stated complaint Stated Complaint: HEAD LAC - Chief complaint Chief Complaint: Laceration - History obtained from History obtained from: Patient - History of Present Illness Timing: Today Pain level max: 3 Pain level now: 1 - Additonal information Additional information: 24 year old male with forehead laceration. He is active [employer]. He was at work today when a handle flew back and struck him in the forehead. No loss of consciousness. No vomiting. No neck or back pain. No numbness or tingling. Tetanus up-to-date Review of Systems Constitutional: denies: Fever, Chills GI: denies: Vomiting, Diarrhea Skin: denies: Rash Musculoskeletal: denies: Neck pain, Back pain Neurologic: denies: Headache PD PAST MEDICAL HISTORY - Past Medical History Cardiovascular: None Respiratory: None GI: None - Past Surgical History Past Surgical History: Yes General: Cholecystectomy - Present Medications Home Medications: Ambulatory Orders Medication Instructions Recorded Confirmed Hydrocodone/Acetaminophen 1 - 2 each PO Q6HR PRN #14 tablet 09/15/19 [Hydrocodone-Acetamin 5-325 mg] - Allergies Allergies/Adverse Reactions: Allergies Allergy/AdvReac Type Severity Reaction Status Date / Time No Known Drug Allergies Allergy Verified 05/09/20 10:36 - Social History Does the pt smoke?: No Smoking Status: Never smoker Does the pt drink ETOH?: Yes ETOH Use: Wine, Beer, Liquor Does the pt have substance abuse?: No - Immunizations Immunizations are current?: Yes - POLST Patient has POLST: No PD ED PE NORMAL - Vitals Vital signs reviewed: Yes - General General: Alert and oriented X 3, No acute distress - HEENT HEENT: PERRL, Moist mucous membranes, Pharynx benign, Other (2 cm, linear, subcutaneous laceration to the forehead. No hematoma. No palpable skull fracture.) - Neck Neck: Supple, no meningeal sign, No bony TTP - Derm Derm: Warm and dry - Neuro Neuro: Alert and oriented X 3 - Psych Psych: Normal mood, Normal affect Results - Vitals Vitals: Vital Signs - 24 hr 05/09/20 05/09/20 05/09/20 10:28 10:40 11:19 Temperature 37 C 37.5 C Heart Rate 114 H 94 84 Respiratory 16 16 18 Rate Blood Pressure 167/115 H 152/53 H 146/82 H O2 Saturation 98 97 100 Oxygen O2 Source Room air Procedures - Laceration (location) forehead Length in cm: 2 Wound type: Linear, Superficial, Clean Neurovascular status: Sensory intact, Motor intact, Vascular intact Wound Preparation: Irrigated copiously NS, Wound explored, To the base Skin layer closure: Dermabond, Steri strips Other: Patient tolerated well, No complications, Neurovascular intact, Tetanus UTD Complexity: Simple PD MEDICAL DECISION MAKING - ED course Complexity details: considered differential, d/w patient ED course: Patient with a forehead laceration. Superficial. Discussed Steri-Strips and Dermabond versus stitches. Patient elects Dermabond. The wound is very well approximated with Steri-Strips and Dermabond. We will have him follow-up closely with his doctor for further care. Warnings of infection and instructions on wound care given at bedside. Also counseled on how to minimize scarring. Patient counseled regarding signs and symptoms for which I believe and urgent re-evaluation would be necessary. Patient with good understanding of and agreement to plan and is comfortable going home at this time This document was made in part using voice recognition software. While efforts are made to proofread this document, sound alike and grammatical errors may occur. Departure - Departure Disposition: 01 Home, Self Care Clinical Impression: Laceration of head Qualifiers: Encounter type: initial encounter Location of open wound of head: unspecified part of head Foreign body presence: without foreign body Qualified Code(s): S01.91XA - Laceration without foreign body of unspecified part of head, initial encounter Condition: Good Instructions: ED Laceration Facial Skin Glue Follow-Up: your,doctor as needed [Other] Comments: Return if you worsen. The glue and Steri-Strips should fall off on their own within a few days. Do not apply any ointment as this will dissolve the glue. Keep the wound clean. Discharge Date/Time: 05/09/20 11:20
[2020-05-09 11:20] VITALS: BP 146/82
== END 2020-05-09 11:20 | disposition home or self-care (01) ==
LOC: ED 10:21
DX: S01.81XA Laceration without foreign body of other part of head, initial encounter (principal); W20.8XXA Other cause of strike by thrown, projected or falling object, initial encounter; Y92.139 Unspecified place military base as the place of occurrence of the external cause; Y99.1 Military activity
CPT/HCPCS: 12011; 99281; 99282

== ENCOUNTER 2021-04-01 14:29 | Outpatient (CLI) | payer OTHER ==
[2021-04-01 15:34] VITALS: BP 115/75
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
== END 2021-04-01 14:30 | disposition home or self-care (01) ==
LOC: SC 14:29
PROVIDERS: ATTEND Nurse Practitioner Family
DX: R06.83 Snoring (principal); G47.8 Other sleep disorders; R51.9 Headache, unspecified; R41.89 Other symptoms and signs involving cognitive functions and awareness; G47.10 Hypersomnia, unspecified; E66.3 Overweight; Z68.29 Body mass index [BMI] 29.0-29.9, adult
CPT/HCPCS: 99203; 99212

== ENCOUNTER 2021-04-16 09:35 | Outpatient (CLI) | payer OTHER | END 2021-04-16 09:36 | disposition home or self-care (01) | LOC: SC 09:35 | PROVIDERS: ATTEND Nurse Practitioner Family | DX: R06.83 Snoring (principal); G47.8 Other sleep disorders; G47.10 Hypersomnia, unspecified; R51.9 Headache, unspecified | CPT/HCPCS: 95806 ==

== ENCOUNTER 2021-04-22 12:43 | Outpatient (CLI) | payer OTHER ==
--- NOTE | 2021-04-22 13:13 | SLEEP CARE CONSULTATION ---
Information from patient questionnaire entered by Renetta Holland MA. I have reviewed and concur with the information entered by Renetta Holland MA. This document represents the service I personally performed and the decisions made by Kimber motta Caren J, ARNP. History of Present Illness Service Date and Time: 04/22/2021 1243 Initial [place] Sleepiness Scale score: 17 (in 2020) Current [place] Sleepiness Scale score: 17 Additional HPI information: BRADFORD WILCOX returns for follow up and results of the recently performed home sleep study. The patient was informed of the following findings: No significant sleep disordered breathing with an average AHI of 1.6 and erendira oxygen saturation of 91%. I explained the pathophysiology behind obstructive sleep apnea. Patient does not have sleep apnea and was advised how weight gain could increase the risk of developing sleep apnea in the future. I strongly encouraged the patient to lose weight. Patient has moderate snoring. Snoring can be reduced by weight loss. Weight loss is best achieved with diet consult. Patient instructed to contact PCP for referral. Snoring can also be treated with an oral appliance from a dentist. Advised to check insurance coverage. In addition, an ENT evaluation can be do to see if other treatment is indicated. Patient counseled not drink alcohol less than 4 hours before bedtime as it can increase snoring and apnea. Patient was cautioned about risks of drowsy driving until sleepiness symptoms resolve. Sleep Study - Results Type of Sleep Study: Home sleep study Prior sleep studies: No Polysomnography/Home Sleep Study results: Physician Impression: The quality of the study is fair due to partial loss of pulse oximetry signal. The length of the study is adequate (> 240 minutes). Please also see the tabulated and graphic data. 1. No significant sleep disordered breathing, with an AHI of 1.6/hr and erendira SaO2 of 91%. During the study, the patient had 11 apneas (10 obstructive, 0 central, 1 mixed) and 2 hypopneas. The longest episode lasted 44.5 seconds. The patient slept mostly supine (supine AHI was 1.5 and non-supine, 3.17). Allergies and Home Medications Home medication list reviewed: Yes (no changes) Review of Systems Review of systems same as previous: Yes (no changes) Physical Exam Heart Rate: 85 O2 Saturation: 98 Height: 5 ft 9 in Weight: 200 lb Body Mass Index: 29.5 BMI Classification: Overweight Impression and Plan 1. Suspected Obstructive Sleep Apnea-Hypopnea Syndrome, as suggested by a history of loud and irregular snoring, frequent awakening during the night, unrefreshed sleep, cognitive impairment, and excessive daytime sleepiness. Patient had a fair HST due to partial loss of pulse oximetry signal. He also is requesting an in lab PSG to make sure his testing is accurate. His father has sleep apnea and is treated. I thus recommend proceeding to polysomnography to confirm the diagnosis and to assess severity. I obtained agreement to proceed. The pathophysiology of obstructive sleep apnea-hypopnea syndrome was discussed with the patient and health risks of cardiovascular and cerebrovascular disease if not treated. Risks of drowsy driving discussed in detail and patient advised to avoid long distance driving and to box puller at the first sign of drowsiness. Patient agreed to plan. * Schedule polysomnography +- manual CPAP titration study. * Avoid long distance driving or driving when feeling sleepy. * Avoid alcohol, sedative and muscle relaxant around bedtime. * Attempt to lose weight. * Review instructions provided by trained office staff on how to prepare for the sleep study. * Return for follow-up after sleep study completed. Counseling Topics: Weight loss health impact Visit Type: In Office Time Spent with Patient (minutes): 20 Provider Statement: I spent 100% of the Face to Face Visit with the patient with greater than 50% spent counseling the patient and coordination of care.
== END 2021-04-22 12:44 | disposition home or self-care (01) ==
LOC: SC 12:43
PROVIDERS: ATTEND Nurse Practitioner Family
DX: R06.83 Snoring (principal); G47.8 Other sleep disorders; R41.89 Other symptoms and signs involving cognitive functions and awareness; G47.10 Hypersomnia, unspecified
CPT/HCPCS: 99212; 99213

== ENCOUNTER 2021-07-16 21:22 | Outpatient (CLI) | payer OTHER | END 2021-07-16 21:23 | disposition home or self-care (01) | LOC: SC 21:22 | PROVIDERS: ATTEND Nurse Practitioner Family | DX: R06.83 Snoring (principal); R53.83 Other fatigue; G47.8 Other sleep disorders; G47.10 Hypersomnia, unspecified | CPT/HCPCS: 95810 ==

== ENCOUNTER 2021-07-28 10:47 | Outpatient (CLI) | payer OTHER ==
[2021-07-28 11:21] VITALS: BP 128/71
--- NOTE | 2021-07-28 11:21 | SLEEP CARE CONSULTATION ---
Information from patient questionnaire entered by Renetta Holland MA. I have reviewed and concur with the information entered by Renetta Holland MA. This document represents the service I personally performed and the decisions made by , Agnes Quiroga ARNP. History of Present Illness Service Date and Time: 07/28/2021 1047 Initial [place] Sleepiness Scale score: 17 (in 2020) Current [place] Sleepiness Scale score: 16 (2021) Additional HPI information: BRAD[facility] WILCOX returns for follow up and results of the recently performed polysomnography. The patient was informed of the following findings: No significant sleep disordered breathing with an AHI of 0.0 and erendira oxygen saturation of 94%. Patient had poor sleep efficiency because he did not sleep much during the study which may have affected his the accuracy of this test. I explained the pathophysiology behind obstructive sleep apnea. Patient does not have sleep apnea and was advised how weight gain could increase the risk of developing sleep apnea in the future. Patient has light snoring. Patient counseled not drink alcohol less than 4 hours before bedtime as it can increase snoring and apnea. Patient was cautioned about risks of drowsy driving until sleepiness symptoms resolve. Sleep Study - Results Type of Sleep Study: Polysomnography (F/U POLY) Prior sleep studies: No Polysomnography/Home Sleep Study results: IMPRESSION: The quality of the study is good. The patient had poor sleep efficiency as the patient was awake most of the night. The sleep architecture was abnormal for reduced amount of time spent in REM sleep. Respiratory monitoring showed no significant sleep disordered breathing (AHI = 0.0) or hypoxia (erendira oxygen saturation of 94%). The patient slept mostly in non-supine positions (supine AHI = 0.0; non- supine = 0.00). Snore was infrequent and light in intensity. There was no significant periodic leg movement of sleep. Cardiac rhythm was sinus rhythm with occasional tachycardia (maximum heart rate during sleep was 110 beats per minute). No abnormal behavior (parasomnia) observed during the night. CONCLUSIONS and RECOMMENDATIONS: 1. This is a normal in-laboratory polysomnography. However, due to the poor sleep efficiency, the results of this study may not be accurate. Clinical correlation advised. Allergies and Home Medications Known drug allergies: No Drug allergies reviewed: Yes Home medication list reviewed: Yes (no changes) Allergy and home medication list: Allergies No Known Drug Allergies Allergy (Verified 05/09/20 10:36) Review of Systems Review of systems same as previous: Yes (no changes) Physical Exam Vital signs obtained and entered by: SUSANA TARIQ Blood Pressure: 128/71 (RIGHT, 71 PULSE, RESP 18, ) Cuff size: wrist Heart Rate: 84 O2 Saturation: 98 (PAPER MASK) Height: 5 ft 9 in Weight: 207 lb (WITH CLOTHES) Body Mass Index: 30.5 BMI Classification: Obese Impression and Plan 1. Suspected Obstructive Sleep Apnea-Hypopnea Syndrome, as suggested by a history of loud and irregular snoring, gasping or choking in sleep, frequent awakening during the night, unrefreshed sleep, and excessive daytime sleepiness. Patient here to follow-up after last in lab sleep study. He states he could not sleep because the bed was so uncomfortable that night. It was noted by that the sleep study may not be accurate because he did not sleep most of the night. After discussing with patient, I will have him repeat the polysomnography in the lab and give him a 5 mg zolpidem to help him to sleep for the study. Patient voiced understanding and agreement with this plan. Risks of drowsy driving discussed in detail and patient advised to avoid long distance driving and to heat treat puller at the first sign of drowsiness. Patient agreed to plan. * Schedule polysomnography * Avoid long distance driving or driving when feeling sleepy. * Avoid alcohol, sedative and muscle relaxant around bedtime. * Attempt to lose weight. * Review instructions provided by trained office staff on how to prepare for the sleep study. * Return for follow-up after sleep study completed. Counseling Topics: Weight loss health impact Visit Type: In Office Time Spent with Patient (minutes): 20 Provider Statement: I spent 100% of the Face to Face Visit with the patient with greater than 50% spent counseling the patient and coordination of care.
== END 2021-07-28 10:48 | disposition home or self-care (01) ==
LOC: SC 10:47
PROVIDERS: ATTEND Nurse Practitioner Family
DX: R06.83 Snoring (principal); E66.9 Obesity, unspecified; Z68.30 Body mass index [BMI] 30.0-30.9, adult
CPT/HCPCS: 99212; 99213